=== PATIENT | male | born 1955 | race Two or more races ===

== ENCOUNTER 2024-08-28 21:44 | Inpatient (IN) | payer OTHER ==
[~2024-08-28] VITALS: Ht 170.2 cm; Wt 102.3 kg
--- NOTE | 2024-08-28 22:14 | ED.PDOC ---
History of Present Illness HPI Comments 69 year old male came to ER via EMS for weakness. Patient denies any medical problems. Denies taking any medications. Has been feeling generally weak the past few days. Was at the bathroom earlier, when he felt his legs gave way, and he fell down. Denies any injuries or loss of consciousness but he was unable to get up. Blood pressure on scene was systolic 180s and blood sugar was 274. Chief Complaint: General Weakness Time Seen by MD: 22:13 Reviewed Notes: Recreation Therapy Aide Notes Allergies: Coded Allergies: NO KNOWN ALLERGIES (Unverified , 08/28/24) Information Source: Patient, Emergency Med Personnel Mode of Arrival: EMS Severity: Moderate Timing: Hours Duration: Since onset Review of Systems REVIEW OF SYSTEMS: General: No fever, no chills, or fatigue HEENT: No sore throat, no earache, no congestion, no neck pain. Cardiac: No chest pain. No palpitations. Lungs: No shortness of breath, no cough. GI: No nausea, no vomiting, no diarrhea, no constipation, no abdominal pain : No dysuria, frequency, or urgency. No hematuria. Musculoskeletal: No joint pain , no joint swelling, no extremity edema. Skin: No rash, no itching. Neuro: No headache, no dizziness, (+) weakness Vital Signs Vital Signs Date Time Temp Pulse Resp B/P (MAP) Pulse Ox O2 Delivery O2 Flow Rate FiO2 08/28/24 22:15 108 08/28/24 21:44 99.2 16 185/89 (121) 93 99.2 Physical Exam PHYSICAL EXAM: General: Awake, alert and oriented. No acute distress. Skin: Skin in warm, dry and intact. Appropriate color for ethnicity. HEENT: The head is normocephalic and atraumatic. Conjunctivae are clear without exudates or hemorrhage. Sclera is non-icteric. EOM are intact. No signs of nystagmus. Eyelids are normal in appearance without swelling or lesions. Oral mucosa is pink and moist Neck: The neck is supple with normal range of motion. No JVD. Cardiac: Heart rate and rhythm are normal. No murmurs, gallops, or rubs are auscultated. Respiratory: No signs of respiratory distress. Lung sounds are clear in all lobes bilaterally without rales, rhonchi, or wheezes. Abdominal: Abdomen is soft, non-tender without distention, guarding or rigidity. Bowel sounds are present and normoactive in all four quadrants. Extremities: Upper and lower extremities are atraumatic in appearance without deformity or edema. Neurological: The patient is awake, alert and oriented to person, place, and time with normal speech. Speech is clear. There is no facial asymmetry. Psychiatric: Appropriate mood and affect. Good judgement and insight. Past Medical History PAST MEDICAL HISTORY: Denies Surgical History: Denies all surgeries Family History Family History: Reviewed,noncontributory to illness Social History Smoker: Non-Smoker Alcohol: Denies ETOH Use Drugs: Denies Drug Use Lives In: Home Was a procedure done? Was a procedure done?: No EKG EKG : Pulse Rate (adult): 108 Cardiac Rhythm: ST Differential Dx Considerations may include: anemia, electrolyte imbalance, fall injury, hypertensive urgency, hyperglycemia, infection, other X-Ray, Labs, Meds, VS Vital Signs Date Time Temp Pulse Resp B/P (MAP) Pulse Ox O2 Delivery O2 Flow Rate FiO2 08/28/24 22:15 108 08/28/24 21:50 108 08/28/24 21:44 99.2 113 16 185/89 (121) 93 99.2 Lab Test 08/28/24 23:14 08/28/24 02:09 Range/Units White Blood Count 11.7 H 4.4-10.8 10^3/uL Red Blood Count 5.74 4.5-5.90 10^6/uL Hemoglobin 15.7 13.5-17.5 g/dL Hematocrit 46.1 41.0-53.0 % Mean Corpuscular Volume 80.3 80.0-100.0 fL Mean Corpuscular Hemoglobin 27.4 L 28.0-32.0 pg Mean Corpuscular Hemoglobin Concent 34.1 32.0-36.0 g/dL Red Cell Distribution Width 14.1 11.8-14.3 % Platelet Count 295 140-450 10^3/uL Mean Platelet Volume 7.4 6.9-10.8 fL Neutrophils (%) (Auto) 85.0 H 37.0-80.0 % Lymphocytes (%) (Auto) 8.1 L 10.0-50.0 % Monocytes (%) (Auto) 6.5 0.0-12.0 % Eosinophils (%) (Auto) 0.2 0.0-7.0 % Basophils (%) (Auto) 0.2 0.0-2.0 % Neutrophils # (Auto) 9.9 H 1.6-8.6 10 ^3/uL Lymphocytes # (Auto) 0.9 0.4-5.4 10 ^3/uL Monocytes # (Auto) 0.8 0-1.3 10 ^3/uL Eosinophils # (Auto) 0 0-0.8 10 ^3/uL Basophils # (Auto) 0 0-0.2 10 ^3/uL Nucleated Red Blood Cells 0.0 % Sodium Level 138 136-145 mmol/L Potassium Level 3.8 3.5-5.1 mmol/L Chloride Level 105 98-107 mmol/L Carbon Dioxide Level 22 20-31 mmol/L Anion Gap 11 5-15 Blood Urea Nitrogen 10 9-23 mg/dL Creatinine 1.19 0.700-1.30 mg/dL Glomerular Filtration Rate Calc 65 >90 mL/min BUN/Creatinine Ratio 8.4 L 10.0-20.0 Serum Glucose 354 H 74-106 mg/dL Lactic Acid Level 2.6 *H 2.1 *H 0.4-2.0 mmol/L Calcium Level 9.7 8.7-10.4 mg/dL Magnesium Level 1.9 1.6-2.6 mg/dL Total Bilirubin 0.8 0.2-1.0 mg/dL Aspartate Amino Transferase (AST) 17 13-40 U/L Alanine Aminotransferase (ALT) 17 7-40 U/L Alkaline Phosphatase 104 46-116 U/L Troponin I High Sensitivity 10 </=54 ng/L B-Type Natriuretic Peptide 6.38 0-100 pg/mL Total Protein 7.4 5.7-8.2 g/dL Albumin 4.4 3.2-4.8 g/dL Lipase 36 12-53 U/L Plasma/Serum Blood Alcohol < 3.0 <10 mg/dL Current Medications Medications (Trade) Dose Ordered Sig/Jm Route Start Time Stop Time Status Last Admin Ceftriaxone Sodium 50 ml @ 100 mls/hr ONCE ONCE IV 08/29/24 00:15 08/29/24 00:44 DC 08/29/24 01:42 Vancomycin HCl 200 ml @ 200 mls/hr ONCE ONCE IV 08/29/24 00:15 08/29/24 01:14 DC 08/29/24 04:30 Sodium Chloride 1,000 ml @ 1,000 mls/hr Q1H ONCE IV 08/29/24 00:15 08/29/24 01:14 DC 08/29/24 01:35 Time of 1ST Reevaluation: 22:09 Reevaluation 1ST: Unchanged Patient Education/Counseling: Prognosis, Need For Follow Up Family Education/Counseling: No Family Present SEPSIS Sepsis Screen Date sepsis recognized/suspect: Aug 28, 2024 Time Sepsis recognized/suspect: 2143 Recent Procedure: No On Antibiotic Therapy: No Respiratory Rate >20: No Heart Rate >90: No Temp<36 C (96.8 F) or >38.3 C: No SBP <90 or MAP <65 mmHG: No New Acute Mental Status Change: No Is the patient on CPAP, BIPAP,: No Physician Orders Electrocardigram (08/28/24 22:17) Drug Screen (08/28/24 22:49) Covid19 Antigen Hazel (08/28/24 ) Rapid Influenza A&B (08/28/24 22:49) Urinalysis (08/28/24 22:49) Chest Xray 1 View (08/28/24 22:49) Blood Culture (08/28/24 22:49) Saline Lock (08/28/24 22:49) Straight Cath. (08/28/24 ) Sodium Chloride 0.9% (08/29/24 00:15) Vital Signs Date Time Temp Pulse Resp B/P (MAP) Pulse Ox O2 Delivery O2 Flow Rate FiO2 08/28/24 22:15 108 08/28/24 21:50 108 08/28/24 21:44 99.2 113 16 185/89 (121) 93 99.2 Laboratory Tests Test 08/28/24 02:09 08/28/24 23:14 Lactic Acid Level 2.1 mmol/L (0.4-2.0) *H 2.6 mmol/L (0.4-2.0) *H White Blood Count 11.7 10^3/uL (4.4-10.8) H Medications Medications Dose Ordered Sig/Jm Route Start Time Stop Time Status Last Admin Dose Admin Ceftriaxone Sodium 50 ml @ 100 mls/hr ONCE ONCE IV 08/29/24 00:15 08/29/24 00:44 DC 08/29/24 01:42 Sodium Chloride 1,000 ml @ 1,000 mls/hr Q1H ONCE IV 08/29/24 00:15 08/29/24 01:14 DC 08/29/24 01:35 Vancomycin HCl 200 ml @ 200 mls/hr ONCE ONCE IV 08/29/24 00:15 08/29/24 01:14 DC 08/29/24 04:30 Departure 1 Departure Time of Disposition: 00:03 Impression: Primary Impression: Generalized weakness Additional Impression: Sepsis Disposition: HOME / SELF CARE / HOMELESS Condition: Stable Comments Patient admitted to hospitalist service for further treatment, evaluation and monitoring. Extensive evaluation was performed in attempt to identify or rule out: (See differential diagnosis section) The following tests were ordered, and results were reviewed by me and discussed with patient: (See diagnostic results section) The following test were independently interpreted by me: EKG I reviewed and agreed with the following test results read by other providers: Chest x-ray I reviewed the following notes from the pt's past medical encounters: N/A Additional information was gathered from interviewing the following independent historians: EMS personnel Discussion of management or test interpretation with external physician/other qualified health child care aide: N/A Addressed an acute or chronic illness that poses a threat to life or bodily function: Sepsis Decision regarding hospitalization or escalation of hospital level of care: Risk and benefits of admission for further treatment of patient's condition was cons idered. Due to patient's current clinical condition, high risk of decline and poor outcome if discharged and need for further inpatient management and monitoring, patient will be admitted to the hospital. Discussed with patient. Critical Care Note Critical Care Time?: No Stability Stability form required: No Heart Score Heart Score: Heart Score Response (Comments) Value History N/A 0 EKG N/A 0 Age N/A 0 Risk Factors N/A 0 Troponin N/A 0 Total 0 I personally scribed for FRANKLIN DORSEY MD ([email or web address]) on 08/28/24 at 22:14. Electronically submitted by Carlos Cedeno ([facility]). I personally scribed for FRANKLIN DORSEY MD ([email or web address]) on 08/28/24 at 22:15. Electronically submitted by Carlos Cedeno ([facility]). I personally scribed for FRANKLIN DORSEY MD ([email or web address]) on 08/28/24 at 22:46. Electronically submitted by Carlos Cedeno ([facility]). I personally scribed for FRANKLIN DORSEY MD (LITMIN) on 08/29/24 at 00:16. Electronically submitted by Carlos Cedeno ([facility]). FRANKLIN DORSEY MD Aug 28, 2024 22:14
--- NOTE | 2024-08-28 23:28 | DVH ---
CHEST RADIOGRAPH Indication: AMS Technique: Single frontal view of the chest was obtained COMPARISON: None FINDINGS: Lines and Tubes: None Lungs: Clear Pleura: No effusion. No pneumothorax. Cardiomediastinal contours: Unremarkable IMPRESSION: No abnormality demonstrated.
[2024-08-28 23:38] LABS: Hematocrit 46.1 % (41.0-53.0); Hemoglobin 15.7 g/dL (13.5-17.5); Mean Corpuscular Hemoglobin 27.4 pg (28.0-32.0); Mean Corpuscular Volume 80.3 fL (80.0-100.0); Nucleated Red Blood Cells % 0.0 %
[2024-08-28 23:50] LABS: Alanine Aminotransferase 17 U/L (7-40); Albumin 4.4 g/dL (3.2-4.8); Alkaline Phosphatase 104 U/L (46-116); Anion Gap 11 (5-15); BUN/Creatinine Ratio 8.4 (10.0-20.0); Blood Urea Nitrogen 10 mg/dL (9-23); Calcium 9.7 mg/dL (8.7-10.4); Carbon Dioxide 22 mmol/L (20-31); Chloride 105 mmol/L (98-107); Magnesium 1.9 mg/dL (1.6-2.6); Potassium 3.8 mmol/L (3.5-5.1); Sodium 138 mmol/L (136-145); Total Protein 7.4 g/dL (5.7-8.2)
[2024-08-28 23:51] LABS: Bilirubin, Total 0.8 mg/dL (0.2-1.0)
[2024-08-28 23:52] LABS: Glucose 354 mg/dL (74-106)
[2024-08-28 23:53] LABS: Lactic Acid w/Reflex 2.6 mmol/L (0.4-2.0)
[2024-08-29] VITALS (7 sets, daily range): BP systolic 146–169; BP diastolic 76–106; PULSE 64–98; RESP 16–18; TEMP 97.7–98.1; O2SAT 95–99
[2024-08-29 00:04] LABS: Lipase 36 U/L (12-53)
--- NOTE | 2024-08-29 00:37 | DVHHPRES ---
History of Present Illness Resident Creating Document: ANABELLA ROSSI RESIDENT History of Present Illness This is a 69-year-old male without any significant past medical history presented to the ED with a chief complaint of generalized weakness for 2 weeks prior to this admission. Patient states that he has been feeling weak for last 2 weeks associated with polyuria, polydipsia, lightheadedness. Today morning he was standing up the from the sitting position in the bathroom earlier, he felt his legs gave away and he fell down without any loss of consciousness or any trauma to the head or the back. He also mentioned that for last few days he was experiencing flu-like symptoms, generalized body ache, runny nose, cough with phlegm which is whitish in color but denied any recent traveling or any positive sick contact. He was not following up with PCP for last couple of years. In the ED blood pressure was systolic 180 and blood sugar was 274. Denied chest pain, shortness of breath, headache, blurred vision, abdominal pain, nausea, vomiting or any change in bowel and bladder habit. Past Medical History None Past Surgical History None Past Social History Lives with daughter Nonsmoker, nonalcoholic and never tried any drugs Review of Systems Constitutional: No: Fever, Chills, Sweats, Weakness, Malaise, Other Eyes: No: Pain, Vision change, Conjunctivae inflammation, Eyelid inflammation, Other, Redness ENT: No: Ear pain, Ear discharge, Nose pain, Nose discharge, Nose congestion, Mouth pain, Mouth swelling, Throat pain, Throat swelling, Other Respiratory: Cough, Sputum; No: Dry, Shortness of breath, SOB with excertion, Wheezing, Hemoptysis, Pleuritic Pain, Wheezing, Other Cardiovascular: Lt Headedness; No: Chest Pain, Palpitations, Orthopnea, Paroxysmal Noc. Dyspnea, Edema, Other Gastrointestinal: No: Nausea, Vomiting, Abdominal Pain, Diarrhea, Constipation, Melena, Hematochezia, Other Genitourinary: No Dysuria, No Frequency, No Incontinence, No Hematuria, No Retention, No Other Musculoskeletal: No: other, neck pain, shoulder pain, arm pain, back pain, hand pain, leg pain, foot pain Skin: No: Rash, Lesions, Jaundice, Bruising, Other Neurological: No: Weakness, Numbness, Incoordination, Change in speech, Confusion, Seizures, Other Allergies: Coded Allergies: NO KNOWN ALLERGIES (Unverified , 08/28/24) Exam Vital Signs Vital Signs Date Time Temp Pulse Resp B/P (MAP) Pulse Ox O2 Delivery O2 Flow Rate FiO2 08/28/24 22:15 108 08/28/24 21:44 99.2 16 185/89 (121) 93 99.2 Exam Physical examination: General Appearance: Alert, Oriented X3, Cooperative, No acute distress HEENT: Atraumatic, PERRLA, EOMI, Mucous membrane moist/pink Respiratory: Clear to auscultation, Normal air movement Cardiovascular: Regular rate, Normal S1, Normal S2, No murmurs, no chest wall tenderness Abdominal: Normal bowel sounds, Soft, No tenderness, No hepatospenomegaly, No masses Extremities: No clubbing, No cyanosis, No edema, Normal pulses, No tenderness/swelling Skin: No rashes, No breakdown, No significant lesion Neuro: Normal speech, Strength at 5/5 X4 ext, Normal tone, Sensation intact, Cranial nerves 3-12 NL, Reflexes 2+ Psych/Mental Status: Mental status NL, Mood NL Labs/Xrays Labs Test 08/28/24 23:14 Range/Units White Blood Count 11.7 H 4.4-10.8 10^3/uL Red Blood Count 5.74 4.5-5.90 10^6/uL Hemoglobin 15.7 13.5-17.5 g/dL Hematocrit 46.1 41.0-53.0 % Mean Corpuscular Volume 80.3 80.0-100.0 fL Mean Corpuscular Hemoglobin 27.4 L 28.0-32.0 pg Mean Corpuscular Hemoglobin Concent 34.1 32.0-36.0 g/dL Red Cell Distribution Width 14.1 11.8-14.3 % Platelet Count 295 140-450 10^3/uL Mean Platelet Volume 7.4 6.9-10.8 fL Neutrophils (%) (Auto) 85.0 H 37.0-80.0 % Lymphocytes (%) (Auto) 8.1 L 10.0-50.0 % Monocytes (%) (Auto) 6.5 0.0-12.0 % Eosinophils (%) (Auto) 0.2 0.0-7.0 % Basophils (%) (Auto) 0.2 0.0-2.0 % Neutrophils # (Auto) 9.9 H 1.6-8.6 10 ^3/uL Lymphocytes # (Auto) 0.9 0.4-5.4 10 ^3/uL Monocytes # (Auto) 0.8 0-1.3 10 ^3/uL Eosinophils # (Auto) 0 0-0.8 10 ^3/uL Basophils # (Auto) 0 0-0.2 10 ^3/uL Nucleated Red Blood Cells 0.0 % Sodium Level 138 136-145 mmol/L Potassium Level 3.8 3.5-5.1 mmol/L Chloride Level 105 98-107 mmol/L Carbon Dioxide Level 22 20-31 mmol/L Anion Gap 11 5-15 Blood Urea Nitrogen 10 9-23 mg/dL Creatinine 1.19 0.700-1.30 mg/dL Glomerular Filtration Rate Calc 65 >90 mL/min BUN/Creatinine Ratio 8.4 L 10.0-20.0 Serum Glucose 354 H 74-106 mg/dL Lactic Acid Level 2.6 *H 0.4-2.0 mmol/L Calcium Level 9.7 8.7-10.4 mg/dL Magnesium Level 1.9 1.6-2.6 mg/dL Total Bilirubin 0.8 0.2-1.0 mg/dL Aspartate Amino Transferase (AST) 17 13-40 U/L Alanine Aminotransferase (ALT) 17 7-40 U/L Alkaline Phosphatase 104 46-116 U/L Troponin I High Sensitivity 10 </=54 ng/L B-Type Natriuretic Peptide 6.38 0-100 pg/mL Total Protein 7.4 5.7-8.2 g/dL Albumin 4.4 3.2-4.8 g/dL Lipase 36 12-53 U/L Plasma/Serum Blood Alcohol < 3.0 <10 mg/dL SEPSIS Sepsis Screen Date sepsis recognized/suspect: Aug 28, 2024 Time Sepsis recognized/suspect: 2143 Recent Procedure: No On Antibiotic Therapy: No Respiratory Rate >20: No Heart Rate >90: No Temp<36 C (96.8 F) or >38.3 C: No SBP <90 or MAP <65 mmHG: No New Acute Mental Status Change: No Is the patient on CPAP, BIPAP,: No Physician Orders Electrocardigram (08/28/24 22:17) Drug Screen (08/28/24 22:49) Covid19 Antigen Hazel (08/28/24 ) Rapid Influenza A&B (08/28/24 22:49) Urinalysis (08/28/24 22:49) Chest Xray 1 View (08/28/24 22:49) Blood Culture (08/28/24 22:49) Saline Lock (08/28/24 22:49) Straight Cath. (08/28/24 ) Troponin-I Hs (08/29/24 01:49) Ceftriaxone 1gm/50ml D5w (Rocephin) (08/29/24 00:15) Vancomycin 1gm/200ml Pm (08/29/24 00:15) Sodium Chloride 0.9% (08/29/24 00:15) Sodium Chloride 0.9% (08/29/24 00:15) Admit (08/29/24 00:17) Vital Signs Date Time Temp Pulse Resp B/P (MAP) Pulse Ox O2 Delivery O2 Flow Rate FiO2 08/28/24 22:15 108 08/28/24 21:50 108 08/28/24 21:44 99.2 113 16 185/89 (121) 93 99.2 Laboratory Tests Test 08/28/24 23:14 Lactic Acid Level 2.6 mmol/L (0.4-2.0) *H White Blood Count 11.7 10^3/uL (4.4-10.8) H Assessment/Plan Assessment/Plan Assessment and plan: # Sepsis likely due to possible pneumonia # Possible gram positive/ gram negative pneumonia # Lactic acidosis likely due to sepsis - was given 2 L IV normal saline bolus - IV normal saline at 75 mL/hours - IV vancomycin as per pharmacy once and IV ceftriaxone 1 g daily - IV azithromycin 500 mg daily - pending blood culture, urinalysis # Hypertensive urgency # Hypertensive heart disease - In the ED blood pressure was 180/89 - IV labetalol 5 mg q.2h p.r.n., SBP more than 170 - Losartan 50 mg p.o. daily # Newly diagnosed type 2 diabetes mellitus - mild sliding scale of insulin # PUD prophylaxis - Pepcid 20 mg p.o. b.i.d. # DVT prophylaxis - Lovenox 40 mg sc daily Goal of care discussed with the patient for more than 20 minutes full code Plan discussed with Dr. Berman Plan discussed with: Other (RN) My Orders Orders - ANABELLA ROSSI RESIDENT Procedure Category Date Status Time Admit ADMIT 08/29/24 Transmitted 00:17 Date of Service: Aug 29, 2024 Billing Provider: TYE BERMAN MD Common Visit Codes: [id number] INP/OBS CARE (HIGH) AGUSTINA ROSSIHIRA RESIDENT Aug 29, 2024 00:37
[2024-08-29] MEDS ORDERED: LABETALOL HCL 20 MG/4 ML VL IV PRN (00:45)
[2024-08-29] MEDS: SODIUM CHLORIDE 0.9% 1,000 ML IV ONE ×3 (01:35→02:30)
[2024-08-29] MEDS: VANCOMYCIN 1GM/200ML PM 200 ML IV ONE (01:42)
[2024-08-29] MEDS: cefTRIAXone 1GM/50ML D5W 50 ML IV ONE (01:42)
[2024-08-29] MEDS ORDERED: DEXTROSE (50%) 50ML SYRG IV PRN (05:45)
[2024-08-29 06:54] LABS: Hematocrit 45.0 % (41.0-53.0); Hemoglobin 15.2 g/dL (13.5-17.5); Mean Corpuscular Hemoglobin 27.7 pg (28.0-32.0); Mean Corpuscular Volume 82.1 fL (80.0-100.0); Nucleated Red Blood Cells % 0.2 %
[2024-08-29] MEDS: ACCU-CHEK COMFORT CURVE STRIP VI SCH (08:22)
[2024-08-29] MEDS: InsuLIN REG 1unit/0.01ml Soln (100units/ml) SC SCH (08:26)
[2024-08-29 08:46] LABS: Alanine Aminotransferase 14 U/L (7-40); Albumin 4.2 g/dL (3.2-4.8); Alkaline Phosphatase 87 U/L (46-116); Anion Gap 8 (5-15); BUN/Creatinine Ratio 7.1 (10.0-20.0); Bilirubin, Total 0.7 mg/dL (0.2-1.0); Calcium 9.2 mg/dL (8.7-10.4); Carbon Dioxide 24 mmol/L (20-31); Potassium 4.5 mmol/L (3.5-5.1); Sodium 140 mmol/L (136-145); Total Protein 7.0 g/dL (5.7-8.2)
[2024-08-29 08:48] LABS: Blood Urea Nitrogen 8 mg/dL (9-23); Chloride 108 mmol/L (98-107); Glucose 249 mg/dL (74-106)
[2024-08-29 09:21] LABS: COVID19 ANTIGEN SOFIA FIA NEGATIVE (NEGATIVE)
[2024-08-29 10:02] LABS: Urine Protein, UAD TRACE (Negative)
[2024-08-29 10:06] LABS: Amphetamine Screen, Urine Neg (NEGATIVE); Barbiturate Scree,Urine Neg (NEGATIVE); Benzodiazephine Screen, Urine Neg (NEGATIVE); Cocaine Screen, Urine Neg (NEGATIVE)
[2024-08-29 10:07] LABS: Cannabinoid Screen, Urine Neg (NEGATIVE); Opiate Scree,Urine Neg (NEGATIVE); Phencyclidine Screen, Urine Neg (NEGATIVE)
[2024-08-29] MEDS: ENOXAPARIN SOD 40 MG/0.4 ML SYRINGE SC SCH (11:37)
[2024-08-29] MEDS: LOSARTAN POTASSIUM 50 MG TAB PO SCH (11:38)
[2024-08-29] MEDS: FAMOTIDINE 20 MG TAB PO SCH (11:38)
[2024-08-29] MEDS: cefTRIAXone 1GM/50ML D5W 50 ML IV SCH (11:39)
[2024-08-29] MEDS: AZITHROMYCIN 500MG/ 250ML 250 ML IV SCH (13:02)
[2024-08-29] MEDS: INSULIN LANTUS (GLARGINE) 1 /0.01ml (100units/ml) SC SCH (13:05)
--- NOTE | 2024-08-29 13:37 | DVHSR ---
APPROVED REPORT EXAM: LIMITED Two-dimensional and M-mode echocardiogram with Doppler and color Doppler. Blood Pressure: 159/100 mmHg INDICATION Hypertensive Urgency RISK FACTORS Obesity: Height: 5' 7", Weight: 233 DIMENSIONS LVDd4.5 (3.8-5.7cm)LA (2D)4.4 (1.9-4.0cm)Aortic Root3.3 (2.0-3.7cm) LVDs3.4 (2.5-4.0cm)LA (MM) (1.9-4.0cm)Aortic Cusp Exc1.9 (1.5-2.0cm) EF (%) 50.0 (55-70%)Rt. Atrium3.1 (1.9-4.0cm)Asc. Aorta cm IVSd1.3 (0.7-1.1cm)RV (D) (1.8-2.4cm) PWd1.2 (0.7-1.1cm) Mitral Valve MitralMitral Stenosis E wave0.80m/sMV Mean GR.mmHg A wave1.00m/sMV Peak GR.mmHg E/A ratio0.82D MVAcm2 Aortic Valve Aortic ValveAortic Stenosis V10.80m/Hosea Mean GR.4mmHg V21.30m/Hosea Peak GR.7mmHg LVOT Diameter2.3 (1.8-2.4cm)Doppler AVA2.56cm2 Pulmonic Valve V20.60m/s Other Information Quality : Technically LimitedRhythm : Technically limited study due to body habitus. Conclusion Technically limited study secondary to poor acoustic windows. Left ventricle was normal-sized. Mild concentric left ventricular hypertrophy was seen. LVEF was ar ound 50%. Right ventricle was normal-sized with normal systolic function. Mild left atrial enlargement was see n. Right atrium was normal-sized. Aortic valve was trileaflet. There was no aortic insufficiency/stenosis. There was no mitral/tricus pid regurgitation. Pulmonary valve was not well visualized. As there was no good tricuspid regurgitation jet, right ventricular systolic pressure could not be es timated.
[2024-08-29 13:41] LABS: Triglycerides 82 mg/dL (< 150)
[2024-08-29 13:43] LABS: Cholesterol 179 mg/dL (< 200); HDL Cholesterol 41 mg/dL (40-59)
--- NOTE | 2024-08-29 15:37 | DVHPNRES ---
Progress Note Date Seen: Aug 29, 2024 Resident Creating Document: CHELLE SALVADOR RESIDENT Has the PT tested + for MRSA If YES, has PT been informed?: No Medical Necessity Reason Pt with a Central, PICC or Fol: No Subjective Review of Systems Patient is a 69-year-old male with no significant prior history who presented to the ED with chief complaint of generalized weakness. Patient states that for the last 2 weeks has felt weak and has presented polyuria, polydipsia, and lightheadedness. He states that yesterday he was standing in the bathroom when he felt his legs give way and he fell, however there was no loss of consciousness nor trauma to his head or back. Additionally refers flu-like symptoms for the last week, generalized body aches, shortness of breath, and productive cough. He denies fever, chest pain, palpitations, and chills. On evaluation in the ED, afebrile, hypertensive (185/89), and tachycardic. Initial labs show WBCs 11.7, lactic acid 2.1 trending to 2.6, sodium 138, potassium 2.8, creatinine 1.19, glucose 354, troponins negative, BNP 6.38, UA 4+ glucose, and UDS negative. Chest Xray shows no abnormality. Patient was admitted for further workup and started on IV antibiotics. Surgical history: None Family History: Mother with diabetes Personal: Patient denies alcohol, tobacco, and drug use. States he lives with his daughter. Patient seen at bedside. Patient states he feels better but still feels weak, currently denies chest pain, shortness of breath, nausea, and vomiting. follow- up labs significant show WBC 10.3, lactic acid 1.6, HbA1c 10.2%, glucose 249, creatinine 1.12, and GFR 70. Patient remains hypertensive, most recent reading 169/93. Influenza type A, B, and Covid negative. Patient has been informed of diabetic status. Basal-bolus insulin has been started and he has been placed on consistent carbohydrate diet. Due to persistent BP elevations, regimen has been adjusted. Echocardiogram showed left ventricle normal size, mild concentric left ventricular hypertrophy, LVEF around 50%, right ventricle normal size normal systolic function, mild left atrial enlargement, right atrium normal size. Right ventricular systolic pressure could not be estimated. Review of Systems: Constitutional: Denies weight loss, fever and chills. HEENT: Denies changes in vision and hearing. Respiratory: Refers cough, denies shortness of breath Cardiovascular: Denies chest discomfort or palpitations GI: Denies abdominal distention, abdominal pain, diarrhea : Refers polyuria, denies dysuria Musculoskeletal: Refers generalized body aches Skin: Denies rash and pruritus. Neurological: denies dizziness headache vision or hearing problems Objective vital signs Vital Sign Date Time Temp Pulse Resp B/P (MAP) Pulse Ox O2 Delivery O2 Flow Rate FiO2 08/29/24 12:31 98.1 69 18 169/106 (127) 99 98.1 08/29/24 09:00 Room Air* 0 21 Total Intake and Output 08/28/24 08/28/24 08/29/24 15:00 23:00 07:00 Intake Total 2050 ml Balance 2050 ml medications Current Medications Medications Dose Ordered Sig/Jm Route Start Time Stop Time Status Last Admin Dose Admin Famotidine 20 mg Q12HR PO 08/29/24 10:00 08/29/24 11:38 20 MG Enoxaparin Sodium 40 mg DAILY SC 08/29/24 10:00 08/29/24 11:37 40 MG Losartan Potassium 50 mg DAILY PO 08/29/24 10:00 08/29/24 11:38 50 MG Diagnostic Test (Pha) 1 strip ACHS 08/29/24 07:00 08/29/24 11:37 1 STRIP Insulin Human Regular ACHS SC 08/29/24 07:00 08/29/24 11:45 3 UNITS Dextrose 50 ml UD PRN IV 08/29/24 05:45 Ceftriaxone Sodium 50 ml @ 100 mls/hr DAILY@09 IV 08/29/24 09:00 08/29/24 11:39 100 MLS/HR Azithromycin 250 ml @ 125 mls/hr DAILY IV 08/29/24 10:00 08/29/24 13:02 125 MLS/HR Insulin Glargine 16 units DAILY@1000 SC 08/29/24 11:45 08/29/24 13:05 16 UNITS Labetalol HCl 10 mg Q2HPRN PRN IV 08/29/24 13:00 Examination Physical Exam: General: The patient alert and oriented in person place and time. Patient following commands HEENT: Normocephalic, atraumatic, moist mucous membrane Respiratory/pulmonary: Clear lungs bilaterally, vesicular murmurs present in almost all lung aragon, no associated crackles or wheezes. Cardiovascular: Normal rate, Normal S1 and S2 Abdomen: Abdomen nondistended, there is no pain to palpation in any of the abdominal quadrants, no palpable masses. Extremities: there is no peripheral edema present at the lower extremities. Peripheral pulses 3+ radial right, 3+ radials soft. Decreased lower extremity pulses. Skin: No rashes or pruritus Neurological: Intact cranial nerves with no focal neurologic deficits laboratory and microbiology Laboratory Tests 08/29/24 07:59 08/29/24 06:01 Test 08/29/24 07:59 Range/Units Serum Glucose 249 #H 74-106 mg/dL Problem List/Assessment/Plan Problem List/Assessment/Plan Assessment and Plan: # Hypertensive urgency -Labetalol IV 10 mg q2 PRN if SBP > 160 -Losartan PO 50 mg daily # Sepsis likely due to possible pneumonia # Possible gram positive/ gram negative pneumonia # Lactic acidosis likely due to sepsis - was given 2 L IV normal saline bolus - IV normal saline at 75 mL/hours - IV vancomycin as per pharmacy once and IV ceftriaxone 1 g daily - IV azithromycin 500 mg daily - Pending blood culture # Newly diagnosed type 2 diabetes mellitus with hyperglycemia -Accu-cheks -Lantus 15 U with SSI -Carbohydrate consistent diet # PUD prophylaxis - Pepcid 20 mg p.o. b.i.d. # DVT prophylaxis - Lovenox 40 mg sc daily Case discussed with Dr. Spencer. Goals of care discussed with the patient for over 20 minutes. FULL CODE. Plan discussed with: Patient My Orders My Orders Orders - CHELLE SALVADOR RESIDENT Procedure Category Date Status Time Consistent DIET 08/29/24 Transmitted Carb(Ccho)Diabetes Lunch Labetalol Hcl PHA 08/29/24 In Process (Labetalol Hcl) 13:00 Date of Service: Aug 29, 2024 Billing Provider: ASHLEY SPENCER MD Common Visit Codes: [id number] INP/OBS CARE(HIGH) CHELLE SALVADOR RESIDENT Aug 29, 2024 15:37 ASHLEY SPENCER MD Aug 29, 2024 23:45
[2024-08-30] VITALS (8 sets, daily range): BP systolic 120–162; BP diastolic 81–97; PULSE 61–82; RESP 17–20; TEMP 97.3–98.2; O2SAT 98–100
[2024-08-30] MEDS: LABETALOL HCL 20 MG/4 ML VL IV PRN (00:27)
[2024-08-30 07:22] LABS: Hematocrit 43.8 % (41.0-53.0); Hemoglobin 14.5 g/dL (13.5-17.5); Mean Corpuscular Hemoglobin 27.5 pg (28.0-32.0); Mean Corpuscular Volume 83.1 fL (80.0-100.0); Nucleated Red Blood Cells % 0.1 %
[2024-08-30 07:35] LABS: Chloride 106 mmol/L (98-107); Potassium 4.2 mmol/L (3.5-5.1); Sodium 139 mmol/L (136-145)
[2024-08-30 07:36] LABS: Anion Gap 13 (5-15)
[2024-08-30 07:37] LABS: Calcium 8.7 mg/dL (8.7-10.4)
[2024-08-30 07:38] LABS: Carbon Dioxide 20 mmol/L (20-31)
[2024-08-30 07:41] LABS: BUN/Creatinine Ratio 7.9 (10.0-20.0)
[2024-08-30 07:42] LABS: Blood Urea Nitrogen 8 mg/dL (9-23); Glucose 160 mg/dL (74-106)
--- NOTE | 2024-08-30 12:58 | ECG ---
[facility] Test Date: 2024-08-28 Test Time: 21:50:45 Pat Name: KIERSTEN URBAN Department: ED Room: 0222T A Gender: M [employer] Supervisor: AZUCENA : [id number] Requested By: FRANKLIN DORSEY Order Number: [id number] Reading MD: Eugene Dtoson Measurements Intervals [place] Rate: 108 P: 9 NM: 167 QRS: 41 QRSD: 86 T: -40 QT: 320 QTc: 429 Interpretive Statements Sinus tachycardia Anterior infarct, old Borderline T abnormalities, inferior leads Electronically Signed On 08-30-2024 19:29:10 PDT by Eugene Dotson Please click the below link to view image of tracing.
--- NOTE | 2024-08-30 13:56 | DVHPNRES ---
Progress Note Date Seen: Aug 30, 2024 Resident Creating Document: CHELLE SALAVDOR RESIDENT Has the PT tested + for MRSA If YES, has PT been informed?: No Medical Necessity Reason Pt with a Central, PICC or Fol: No Subjective Review of Systems Patient is a 69-year-old male with no significant prior history who presented to the ED with chief complaint of generalized weakness. Patient states that for the last 2 weeks has felt weak and has presented polyuria, polydipsia, and lightheadedness. He states that yesterday he was standing in the bathroom when he felt his legs give way and he fell, however there was no loss of consciousness nor trauma to his head or back. Additionally refers flu-like symptoms for the last week, generalized body aches, shortness of breath, and productive cough. He denies fever, chest pain, palpitations, and chills. On evaluation in the ED, afebrile, hypertensive (185/89), and tachycardic. Initial labs show WBCs 11.7, lactic acid 2.1 trending to 2.6, sodium 138, potassium 2.8, creatinine 1.19, glucose 354, troponins negative, BNP 6.38, UA 4+ glucose, and UDS negative. Chest Xray shows no abnormality. Patient was admitted for further workup and started on IV antibiotics. On admission, patient stated he felt better but was still weak, denied chest pain, shortness of breath, nausea, and vomiting. follow up labs show WBC 10.3, lactic acid 1.6, HbA1c 10.2%, glucose 249, creatinine 1.12, and GFR 70. He remained hypertenisive trending 69/93. Influenza type A, B, and Covid negative. Patient has been informed of diabetic status. Basal-bolus insulin has been started and he has been placed on consistent carbohydrate diet. Patient seen at bedside. He is oriented in person, place, and time. He states that he feels well, currently denies fever, headache, tinnitus, nausea, vomiting, chest pain, diaphoresis, shortness of breath, and palpitations. Patient is tolerating carbohydrate consistent diet. POC glucose values today 163, 223, and 263 and serum glucose 160. Patient has been consistently hypertensive. We will continue to adjust insulin and hypertensive regimen. Possible discharge tomorrow. Review of systems: Constitutional: Denies weight loss, fever and chills. HEENT: Denies changes in vision and hearing. Respiratory: denies shortness of breath and cough Cardiovascular: Denies chest discomfort or palpitations GI: Denies abdominal distention, abdominal pain, diarrhea, bowel movements : Refers polyuria, denies dysuria Musculoskeletal: Denies generalized body aches Skin: Denies rash and pruritus. Neurological: denies dizziness headache vision or hearing problems Objective vital signs Vital Sign Date Time Temp Pulse Resp B/P (MAP) Pulse Ox O2 Delivery O2 Flow Rate FiO2 08/30/24 12:55 97.3 82 17 153/90 (111) 98 97.3 08/30/24 08:00 Room Air* 0 21 Total Intake and Output 08/29/24 08/29/24 08/30/24 15:00 23:00 07:00 Intake Total 50 ml 100 ml 300 ml Output Total 100 ml Balance 50 ml 100 ml 200 ml medications Current Medications Medications Dose Ordered Sig/Jm Route Start Time Stop Time Status Last Admin Dose Admin Famotidine 20 mg Q12HR PO 08/29/24 10:00 08/30/24 08:38 20 MG Enoxaparin Sodium 40 mg DAILY SC 08/29/24 10:00 08/30/24 08:38 40 MG Losartan Potassium 50 mg DAILY PO 08/29/24 10:00 08/30/24 08:38 50 MG Diagnostic Test (Pha) 1 strip ACHS 08/29/24 07:00 08/30/24 11:17 1 STRIP Insulin Human Regular ACHS SC 08/29/24 07:00 08/30/24 11:18 6 UNITS Dextrose 50 ml UD PRN IV 08/29/24 05:45 Ceftriaxone Sodium 50 ml @ 100 mls/hr DAILY@09 IV 08/29/24 09:00 08/30/24 08:37 100 MLS/HR Azithromycin 250 ml @ 125 mls/hr DAILY IV 08/29/24 10:00 08/30/24 09:42 125 MLS/HR Insulin Glargine 16 units DAILY@1000 SC 08/29/24 11:45 08/30/24 09:39 16 UNITS Labetalol HCl 10 mg Q2HPRN PRN IV 08/29/24 13:00 08/30/24 08:39 10 MG Examination General: The patient alert and oriented in person place and time. Patient following commands HEENT: Normocephalic, atraumatic, moist mucous membrane Respiratory/pulmonary: Clear lungs bilaterally, vesicular murmurs present in almost all lung aragon, no associated crackles or wheezes. Cardiovascular: Normal rate, Normal S1 and S2 Abdomen: Abdomen nondistended, there is no pain to palpation in any of the abdominal quadrants, no palpable masses. Extremities: there is no peripheral edema present at the lower extremities. Peripheral pulses 3+ radial right, 3+ radials soft. Decreased lower extremity pulses. Skin: No rashes or pruritus Neurological: Intact cranial nerves with no focal neurologic deficits laboratory and microbiology Laboratory Tests 08/30/24 06:28 Test 08/30/24 06:28 Range/Units Serum Glucose 160 H 74-106 mg/dL Microbiology Date/Time Source Procedure Growth Status 08/28/24 23:14 Blood Blood Culture - Preliminary NO GROWTH AFTER 24 HOURS OF INCUBATION. Resulted Problem List/Assessment/Plan Problem List/Assessment/Plan Assessment and Plan: Hypertensive urgency -Labetalol IV 10 mg q2 PRN if SBP > 160 -Losartan PO 50 mg daily -Amlodipine PO 5 mg daily Sepsis likely due to possible pneumonia Possible gram positive/ gram negative pneumonia Lactic acidosis likely due to sepsis - was given 2 L IV normal saline bolus - IV normal saline at 75 mL/hours - IV Vancomycin as per pharmacy once and IV ceftriaxone 1 g daily - IV azithromycin 500 mg daily - Pending blood culture Newly diagnosed type 2 diabetes mellitus with hyperglycemia -Accu-cheks -Lantus 15 U with SSI -Carbohydrate consistent diet PUD prophylaxis - Pepcid 20 mg p.o. b.i.d. DVT prophylaxis - Lovenox 40 mg sc daily Case discussed with Dr. Roman. Goals of care discussed with the patient for over 20 minutes. FULL CODE. Plan discussed with: Patient Date of Service: Aug 30, 2024 Billing Provider: JOSAFAT ROMAN MD Common Visit Codes: [id number] INP/OBS CARE(HIGH) CHELLE SALVADOR RESIDENT Aug 30, 2024 13:56 JOSAFAT ROMAN MD Aug 31, 2024 16:19
[2024-08-30] MEDS: INSULIN LISPRO (HUMAN) 100 UNITS/ML ML SC SCH (17:00)
[2024-08-31] VITALS (8 sets, daily range): BP systolic 156–182; BP diastolic 76–94; PULSE 63–78; RESP 18–19; TEMP 97.4–98.6; O2SAT 96–99
[2024-08-31 06:48] LABS: Hematocrit 41.3 % (41.0-53.0); Hemoglobin 14.0 g/dL (13.5-17.5); Mean Corpuscular Hemoglobin 27.5 pg (28.0-32.0); Mean Corpuscular Volume 80.9 fL (80.0-100.0); Nucleated Red Blood Cells % 0.0 %
[2024-08-31 06:58] LABS: Chloride 105 mmol/L (98-107); Sodium 140 mmol/L (136-145)
[2024-08-31 06:59] LABS: Anion Gap 11 (5-15); Calcium 9.1 mg/dL (8.7-10.4); Carbon Dioxide 24 mmol/L (20-31)
[2024-08-31 07:05] LABS: BUN/Creatinine Ratio 6.5 (10.0-20.0)
[2024-08-31 07:06] LABS: Blood Urea Nitrogen 7 mg/dL (9-23); Glucose 156 mg/dL (74-106); Potassium 3.5 mmol/L (3.5-5.1)
--- NOTE | 2024-08-31 14:33 | DVHPNRES ---
Progress Note Date Seen: Aug 31, 2024 Resident Creating Document: CHELLE SALVADOR RESIDENT Medical Necessity Reason Pt with a Central, PICC or Fol: No Subjective Review of Systems Patient is a 69-year-old male with no significant prior history who presented to the ED with chief complaint of generalized weakness. Patient states that for the last 2 weeks has felt weak and has presented polyuria, polydipsia, and lightheadedness. He states that yesterday he was standing in the bathroom when he felt his legs give way and he fell, however there was no loss of consciousness nor trauma to his head or back. Additionally refers flu-like symptoms for the last week, generalized body aches, shortness of breath, and productive cough. He denies fever, chest pain, palpitations, and chills. On evaluation in the ED, afebrile, hypertensive (185/89), and tachycardic. Initial labs show WBCs 11.7, lactic acid 2.1 trending to 2.6, sodium 138, potassium 2.8, creatinine 1.19, glucose 354, troponins negative, BNP 6.38, UA 4+ glucose, and UDS negative. Chest Xray shows no abnormality. Patient was admitted for further workup and started on IV antibiotics. On admission, patient stated he felt better but was still weak, denied chest pain, shortness of breath, nausea, and vomiting. Follow up labs show WBC 10.3, lactic acid 1.6, HbA1c 10.2%, glucose 249, creatinine 1.12, and GFR 70. He remained hypertensive trending 169/93.Influenza type A, B, and Covid negative. Patient has been informed of diabetic status. Basal-bolus insulin has been started and he has been placed on consistent carbohydrate diet. Patient was started on antihypertensive regimen, which was later adjusted due to persistent hypertension. Patient seen at bedside. Patient is oriented in person, place, and time. He states that he feels well, tolerating carbohydrate consistent diet, and tolerating new insulin use. Currently denies fever, chest pain, cough, nausea, vomiting, palpitations, and any other symptoms. Follow up labs WBC 5.3, sodium 140, potassium 3.5, creatinine 1.08, and serum glucose 156. Preliminary blood cultures currently show no growth at 48 hours. Patient has been consistently hypertensive, amlodipine has been added for better control. He will continue on the same insulin regimen. States he has not been ambulating since admission due to bed alarm, he tried to ambulate stated dizziness on standing. We will continue to monitor. Possible discharge tomorrow. Review of systems Constitutional: Denies weight loss, fever and chills. HEENT: Denies changes in vision and hearing. Respiratory: Denies cough and shortness of breath Cardiovascular: Denies chest discomfort or palpitations GI: Denies abdominal distention, abdominal pain, diarrhea : Denies polyuria and dysuria Musculoskeletal: Refers generalized body aches Skin: Denies rash and pruritus. Neurological: Refers dizziness upon standing, denies headache vision or hearing problems Objective vital signs Vital Sign Date Time Temp Pulse Resp B/P (MAP) Pulse Ox O2 Delivery O2 Flow Rate FiO2 08/31/24 10:07 182/94 08/31/24 09:00 98.3 67 18 96 98.3 08/31/24 08:00 Room Air* 0 21 Total Intake and Output 08/30/24 08/30/24 08/31/24 15:00 23:00 07:00 Intake Total 300 ml 325 ml 400 ml Output Total 1000 ml 1650 ml Balance 300 ml -675 ml -1250 ml medications Current Medications Medications Dose Ordered Sig/Jm Route Start Time Stop Time Status Last Admin Dose Admin Famotidine 20 mg Q12HR PO 08/29/24 10:00 08/31/24 10:06 20 MG Enoxaparin Sodium 40 mg DAILY SC 08/29/24 10:00 08/31/24 10:06 40 MG Losartan Potassium 50 mg DAILY PO 08/29/24 10:00 08/31/24 10:07 50 MG Diagnostic Test (Pha) 1 strip ACHS 08/29/24 07:00 08/31/24 11:32 1 STRIP Insulin Human Regular ACHS SC 08/29/24 07:00 08/31/24 11:39 4 UNITS Dextrose 50 ml UD PRN IV 08/29/24 05:45 Ceftriaxone Sodium 50 ml @ 100 mls/hr DAILY@09 IV 08/29/24 09:00 08/31/24 10:06 100 MLS/HR Azithromycin 250 ml @ 125 mls/hr DAILY IV 08/29/24 10:00 08/31/24 11:04 125 MLS/HR Insulin Glargine 16 units DAILY@1000 SC 08/29/24 11:45 08/31/24 10:05 16 UNITS Labetalol HCl 10 mg Q2HPRN PRN IV 08/29/24 13:00 08/31/24 01:15 10 MG Insulin Human Lispro 3 units AC SC 08/30/24 17:00 08/31/24 11:38 3 UNITS Amlodipine Besylate 5 mg DAILY PO 08/31/24 10:00 08/31/24 10:07 5 MG Examination General: The patient alert and oriented in person place and time. Patient following commands HEENT: Normocephalic, atraumatic, moist mucous membrane Respiratory/pulmonary: Clear lungs bilaterally, vesicular murmurs present in almost all lung aragon, no associated crackles or wheezes. Cardiovascular: Normal rate, Normal S1 and S2 Abdomen: Abdomen nondistended, there is no pain to palpation in any of the abdominal quadrants, no palpable masses. Extremities: there is no peripheral edema present at the lower extremities. Peripheral pulses 3+ radial right, 3+ radials soft. Decreased lower extremity pulses. Skin: No rashes or pruritus Neurological: Intact cranial nerves with no focal neurologic deficits laboratory and microbiology Laboratory Tests 08/31/24 06:19 Test 08/31/24 06:19 Range/Units Serum Glucose 156 H 74-106 mg/dL Microbiology Date/Time Source Procedure Growth Status 08/29/24 21:32 Nose MRSA Screen - Final Complete 08/28/24 23:14 Blood Blood Culture - Preliminary NO GROWTH AFTER 48 HOURS OF INCUBATION. Resulted Problem List/Assessment/Plan Problem List/Assessment/Plan Assessment and Plan: Hypertensive urgency -Labetalol IV 10 mg q2 PRN if SBP > 160 -Losartan PO 50 mg daily -Amlodipine PO 5 mg daily Sepsis likely due to possible pneumonia Possible gram positive/ gram negative pneumonia Lactic acidosis likely due to sepsis - was given 2 L IV normal saline bolus - IV normal saline at 75 mL/hours - IV Vancomycin as per pharmacy once and IV ceftriaxone 1 g daily - IV azithromycin 500 mg daily - Preliminary Blood Cultures: No growth at 48 hours Newly diagnosed type 2 diabetes mellitus with hyperglycemia, HbA1c: 10.2% -Accu-cheks -Lantus 15 U with SSI -Carbohydrate consistent diet PUD prophylaxis - Pepcid 20 mg p.o. b.i.d. DVT prophylaxis - Lovenox 40 mg sc daily Case discussed with Dr. Roman. Goals of care discussed with the patient for over 20 minutes. Attempts were made to contact his daughter, Nick, however she did not answer. FULL CODE. Plan discussed with: Patient My Orders My Orders Orders - CHELLE SALVADOR Procedure Category Date Status Time Amlodipine Tablet PHA 08/31/24 In Process (Norvasc Tablet) 10:00 Date of Service: Aug 31, 2024 Billing Provider: JOSAFAT ROMAN MD Common Visit Codes: [id number] INP/OBS CARE(HIGH) CHELLE SALVADOR Aug 31, 2024 14:33 JOSAFAT ROMAN MD Sep 01, 2024 21:49
[2024-09-01 01:20] VITALS: BP 181/86; PULSE 69; RESP 19; TEMP 97; O2SAT 98
[2024-09-01 05:00] VITALS: BP 166/92; PULSE 78; RESP 19; TEMP 97.4; O2SAT 99
[2024-09-01] MEDS: LOSARTAN POTASSIUM 50 MG TAB PO SCH (07:17)
[2024-09-01 07:32] LABS: Chloride 103 mmol/L (98-107); Sodium 139 mmol/L (136-145)
[2024-09-01 07:33] LABS: Anion Gap 10 (5-15); Calcium 9.5 mg/dL (8.7-10.4); Carbon Dioxide 26 mmol/L (20-31)
[2024-09-01 07:37] LABS: Hematocrit 43.4 % (41.0-53.0); Hemoglobin 14.8 g/dL (13.5-17.5); Mean Corpuscular Hemoglobin 27.6 pg (28.0-32.0); Mean Corpuscular Volume 81.1 fL (80.0-100.0); Nucleated Red Blood Cells % 0.2 %
[2024-09-01 07:38] LABS: BUN/Creatinine Ratio 9.7 (10.0-20.0); Blood Urea Nitrogen 10 mg/dL (9-23)
[2024-09-01 07:42] LABS: Glucose 135 mg/dL (74-106); Potassium 3.4 mmol/L (3.5-5.1)
[2024-09-01 08:00] VITALS: PULSE 58; PULSE 65; RESP 18; O2SAT 97
[2024-09-01] MEDS: POTASSIUM EFFERVESENT TAB 25 MEQ PO ONE (08:45)
[2024-09-01 09:00] VITALS: BP 197/88; PULSE 65; RESP 18; TEMP 97.2; O2SAT 97
[2024-09-01] MEDS: hydroCHLOROthiazide 25 MG TAB PO SCH (09:54)
[2024-09-01 10:31] LABS: Hepatitis B Surface Antigen Negative (Negative)
[2024-09-01] MEDS ORDERED: LOSA-535 PO (11:56)
[2024-09-01] MEDS ORDERED: AMLO1TAB23 PO (11:56)
[2024-09-01] MEDS ORDERED: HYDR25TA4 PO (11:56)
[2024-09-01] MEDS ORDERED: INSU-567 XX (11:56)
[2024-09-01] MEDS ORDERED: INSUINJ37 SC (11:56)
[2024-09-01] MEDS ORDERED: AZIT500T66 PO (11:56)
[2024-09-01] MEDS ORDERED: INSU100I4 SC (11:56)
[2024-09-01] MEDS ORDERED: LANC-347 XX (11:58)
[2024-09-01] MEDS ORDERED: BLOO1KIT60 XX (11:58)
[2024-09-01 12:54] VITALS: BP 150/79; PULSE 66; RESP 17; TEMP 98; O2SAT 97
[2024-09-01 13:21] VITALS: BP 150/79; PULSE 66; RESP 17; TEMP 98; O2SAT 97
--- NOTE | 2024-09-01 17:19 | DVHDSRES ---
Discharge Summary Date of Admission Resident Creating Document: CHELLE SALVADOR RESIDENT Aug 29, 2024 at 00:17 Date of Discharge: Sep 01, 2024 Admitting Diagnosis Generalized weakness Wounds: No wounds Labs/Diagnostic Data: Laboratory Results Test 09/01/24 11:02 09/01/24 06:35 08/31/24 06:19 08/30/24 06:28 POC Glucose 264 mg/dl (70-106) White Blood Count 4.9 10^3/uL (4.4-10.8) Red Blood Count 5.35 10^6/uL (4.5-5.90) Hemoglobin 14.8 g/dL (13.5-17.5) Hematocrit 43.4 % (41.0-53.0) Mean Corpuscular Volume 81.1 fL (80.0-100.0) Mean Corpuscular Hemoglobin 27.6 pg (28.0-32.0) Mean Corpuscular Hemoglobin Concent 34.1 g/dL (32.0-36.0) Red Cell Distribution Width 13.6 % (11.8-14.3) Platelet Count 296 10^3/uL (140-450) Mean Platelet Volume 7.4 fL (6.9-10.8) Neutrophils (%) (Auto) 52.7 % (37.0-80.0) Lymphocytes (%) (Auto) 33.6 % (10.0-50.0) Monocytes (%) (Auto) 11.0 % (0.0-12.0) Eosinophils (%) (Auto) 2.4 % (0.0-7.0) Basophils (%) (Auto) 0.3 % (0.0-2.0) Neutrophils # (Auto) 2.6 10 ^3/uL (1.6-8.6) Lymphocytes # (Auto) 1.6 10 ^3/uL (0.4-5.4) Monocytes # (Auto) 0.5 10 ^3/uL (0-1.3) Eosinophils # (Auto) 0.1 10 ^3/uL (0-0.8) Basophils # (Auto) 0 10 ^3/uL (0-0.2) Nucleated Red Blood Cells 0.2 % Sodium Level 139 mmol/L (136-145) Potassium Level 3.4 mmol/L (3.5-5.1) Chloride Level 103 mmol/L (98-107) Carbon Dioxide Level 26 mmol/L (20-31) Anion Gap 10 (5-15) Blood Urea Nitrogen 10 mg/dL (9-23) Creatinine 1.03 mg/dL (0.700-1.30) Glomerular Filtration Rate Calc 78 mL/min (>90) BUN/Creatinine Ratio 9.7 (10.0-20.0) Serum Glucose 135 mg/dL (74-106) Calcium Level 9.5 mg/dL (8.7-10.4) Hepatitis B Surface Antigen Negative (Negative) Hepatitis B Surface Antibody Negative (Negative) Hepatitis C Antibody Negative (Negative) HIV (1&2) Antibody Negative (Negative) Test 08/29/24 09:45 08/29/24 09:30 08/29/24 08:35 08/29/24 08:33 Urine Opiates Screen Neg (NEGATIVE) Urine Fentanyl Screen Neg (NEGATIVE) Urine Barbiturates Screen Neg (NEGATIVE) Urine Phencyclidine Screen Neg (NEGATIVE) Urine Amphetamines Screen Neg (NEGATIVE) Urine Benzodiazepines Screen Neg (NEGATIVE) Urine Cocaine Screen Neg (NEGATIVE) Urine Cannabinoids Screen Neg (NEGATIVE) Urine Color Light-yellow (Yellow) Urine Clarity Clear (Clear) Urine pH 5.0 (5.0-9.0) Urine Specific Humble 1.034 (1.001-1.035) Urine Protein Trace (Negative) Urine Ketones Negative (Negative) Urine Blood Negative /uL (Negative) Urine Nitrite Negative (Negative) Urine Bilirubin Negative (Negative) Urine Urobilinogen Normal mg/dL (Negative) Urine Leukocyte Esterase Negative /uL (Negative) Urine RBC None seen /hpf (0 - 3) Urine Microscopic WBC < 1 /HPF (0-3) Urine Squamous Epithelial Cells Few /hpf (<5) Urine Bacteria None seen /hpf (None Seen) Urine Glucose 4+ mg/dL (Normal) SARS-CoV-2 Antigen (Rapid) Negative (NEGATIVE) Influenza Type A Antigen Negative (Negative) Influenza Type B Antigen Negative (Negative) Test 08/29/24 07:59 08/29/24 06:01 08/29/24 02:09 08/28/24 23:14 Total Bilirubin 0.7 mg/dL (0.2-1.0) Aspartate Amino Transferase (AST) 14 U/L (13-40) Alanine Aminotransferase (ALT) 14 U/L (7-40) Alkaline Phosphatase 87 U/L (46-116) Total Protein 7.0 g/dL (5.7-8.2) Albumin 4.2 g/dL (3.2-4.8) Triglycerides Level 82 mg/dL (< 150) Cholesterol Level 179 mg/dL (< 200) LDL Cholesterol 121 mg/dL (< 100) HDL Cholesterol 41 mg/dL (40-59) Hemoglobin A1c 10.2 % A1C (<5.7) Lactic Acid Level 1.6 mmol/L (0.4-2.0) Thyroid Stimulating Hormone (TSH) 1.10 uIU/mL (0.55-4.78) Troponin I High Sensitivity 12 ng/L (</=54) Magnesium Level 1.9 mg/dL (1.6-2.6) B-Type Natriuretic Peptide 6.38 pg/mL (0-100) Lipase 36 U/L (12-53) Plasma/Serum Blood Alcohol < 3.0 mg/dL (<10) Other Laboratory Tests 09/01/24 06:35 Brief Hx & Hospital Course: Patient is a 69-year-old male with no significant prior history who presented to the ED with chief complaint of generalized weakness. Patient states that for the last 2 weeks has felt weak and has presented polyuria, polydipsia, and lightheadedness. He states that yesterday he was standing in the bathroom when he felt his legs give way and he fell, however there was no loss of consciousness nor trauma to his head or back. Additionally refers flu-like symptoms for the last week, generalized body aches, shortness of breath, and productive cough. He denies fever, chest pain, palpitations, and chills. On evaluation in the ED, afebrile, hypertensive (185/89), and tachycardic. Initial labs show WBCs 11.7, lactic acid 2.1 trending to 2.6, sodium 138, potassium 2.8, creatinine 1.19, glucose 354, troponins negative, BNP 6.38, UA 4+ glucose, and UDS negative. Chest Xray shows no abnormality. Patient was admitted for further workup and started on IV antibiotics. On admission, patient stated he felt better but was still weak, denied chest pain, shortness of breath, nausea, and vomiting. Follow up labs show WBC 10.3, lactic acid 1.6, HbA1c 10.2%, glucose 249, creatinine 1.12, and GFR 70. Influenza type A, B, and Covid negative. Patient has been informed of diabetic status. Basal-bolus insulin has been started and he has been placed on consistent carbohydrate diet. Patient was started on antihypertensive regimen, which was later adjusted due to persistent hypertension. An exposure panel was conducted, all of which was negative. Patient progressed favorably. On evaluation today, he stated he was well, tolerating insulin and hypertensive regimens, and ambulating without dizziness or difficulty. Labs today were within normal range. He is considered stable for discharge home with new insulin, metformin, antihypertensives, and 2 days of antibiotics to complete treatment at home. Recommendations to follow up with PCP in 1-2 weeks were. Patient was thoroughly educated about his new medications. All questions and concerns were addressed. He states he understands. Physical Exam: General: The patient alert and oriented in person place and time. Patient following commands HEENT: Normocephalic, atraumatic, moist mucous membrane Respiratory/pulmonary: Clear lungs bilaterally, vesicular murmurs present in almost all lung aragon, no associated crackles or wheezes. Cardiovascular: Normal rate, Normal S1 and S2 Abdomen: Abdomen nondistended, there is no pain to palpation in any of the abdominal quadrants, no palpable masses. Extremities: there is no peripheral edema present at the lower extremities. Peripheral pulses 3+ radial right, 3+ radials soft. Decreased lower extremity pulses. Skin: No rashes or pruritus Neurological: Intact cranial nerves with no focal neurologic deficits Case discussed with Dr. Roman Goals of care discussed with the patient for over 25 minutes. Operations or Procedures CHEST RADIOGRAPH Indication: AMS Technique: Single frontal view of the chest was obtained COMPARISON: None FINDINGS: Lines and Tubes: None Lungs: Clear Pleura: No effusion. No pneumothorax. Cardiomediastinal contours: Unremarkable IMPRESSION: No abnormality demonstrated. Condition at Discharge: Stable Final Diagnosis/Problems List Hypertensive Urgency Hypertension Sepsis likekly due to possible PNA (gram+/gram-) Lactic acidosis likely due to above Newly diagnosed DM type 2 with hyperglycemia Discharge Disposition: Home Discharge Instruct/Medications Diet: Consistent carbohydrate, Cardiac 2g Na,low cholest Activity: No Restrictions, As Tolerated Follow Up/Referral: Follow up with PCP in 1-2 weeks Medications: Azithromycin Lantus/Lispro Metformin Losartan Amlodipine Hydrochlorothiazide Scheduled Amlodipine Besylate (Amlodipine Besylate), 1 TAB PO DAILY Azithromycin (Azithromycin), 1 TAB PO DAILY Hydrochlorothiazide (Hydrochlorothiazide), 1 TAB PO DAILY Insulin Glargine (Lantus Solostar), 15 UNIT SC QPM Insulin Lispro (Humalog Kwikpen), 3 UNIT SC TID Losartan Potassium (Losartan Potassium), 1 TAB PO DAILY Durable Medical Equipment Blood Glucose Monitoring Suppl (D-Care Glucometer Kit/Glu W/Device), KIT XX TID, (DME) Insulin Syringe/Needle U-100 (Advocate Insulin Syringe/), MG XX TID, (DME) Lancets (Freestyle Lancets), AC XX TID, (DME) Discharge Statement: "Patient was advised to return to the ER or call 911 if any headaches, dizziness, shortness of breath, chest pain, abdominal pain, bleeding, fevers, or worsening of medical condition. Patient was counseled about treatment plan, medications, possible side effects, patientverbalized understanding. All questions were answered to the best of my ability. This discharge took greater then 30 minutes in planning, reviewing documentation, counseling the patient, and discussing with other team members." ASSESSMENT ASSESSMENT Assessment Hypertensive Urgency Hypertension Sepsis liekly due to possible PNA (gram+/gram-) Lactic acidosis likely due to abpve Newly diagnosed DM type 2 with hyperglycemia Date of Service: Sep 01, 2024 Billing Provider: JOSAFAT ROMAN MD Common Visit Codes: 07407-NUB/OBS DISCH DAY >30min CHELLE SALVADOR RESIDENT Sep 01, 2024 17:19 JOSAFAT ROMAN MD Sep 01, 2024 22:13
== END 2024-09-01 14:15 | disposition home or self-care (01) | DRG 871 ==
LOC: ER 21:44 → EDBD 21:44 → OVERFLOW 08-29 00:17 → TELE-CENTR 08-29 14:57
PROVIDERS: ADMIT Student in an Organized Health Care Education/Training Program; ATTEND Student in an Organized Health Care Education/Training Program
DX: A41.59 Other Gram-negative sepsis (principal); J15.69 Pneumonia due to other Gram-negative bacteria; J15.9 Unspecified bacterial pneumonia; E87.20 Acidosis, unspecified; Z20.822 Contact with and (suspected) exposure to COVID-19; I16.0 Hypertensive urgency; I11.9 Hypertensive heart disease without heart failure; E11.65 Type 2 diabetes mellitus with hyperglycemia; Z79.899 Other long term (current) drug therapy
CPT/HCPCS: 36415; 71045; 80048; 80053; 80061; 80307; 80320; 81001; 82962; 83036; 83605; 83690; 83735; 83880; 84443; 84484; 85025; 86703; 86706; 86803; 87040; 87081; 87340; 87426; 87804; 93005; 93306; G0378; J1815